=== PATIENT | female | born 1965 | race Caucasian/White ===

== ENCOUNTER → 2020-03-23 | Outpatient (CLI) | payer OTHER ==
--- NOTE | 2020-03-23 14:14 | MM ---
Reason for exam: screening (asymptomatic). Baseline mammogram. Physical Findings: Nurse did not find any significant physical abnormalities on exam. MG Screening Mammo w CAD Bilateral CC and MLO view(s) were taken. The breast tissue is heterogeneously dense. This may lower the sensitivity of mammography. Focal asymmetry right 12 o'clock middle position. These results were verbally communicated with the patient and result sheet given to the patient on 03/23/20. ASSESSMENT: Benign, BI-RAD 2 RECOMMENDATION: Routine screening mammogram of both breasts in 1 year.
== END | disposition home or self-care (01) ==
LOC: RADMAMWWP 13:08
PROVIDERS: ATTEND Family Medicine
DX: Z12.31 Encounter for screening mammogram for malignant neoplasm of breast (principal)
CPT/HCPCS: 77067

== ENCOUNTER → 2020-06-15 | Outpatient (CLI) | payer OTHER ==
[2020-06-15 10:21] LABS: Basophils % (A) 0 %; Eosinophils # (A) 0.1 k/uL (0-0.7); Eosinophils % (A) 3 %; HCT 41.8 % (34.0-46.0); HGB 13.8 gm/dL (11.4-16.0); Lymphocytes # (A) 1.2 k/uL (1.0-4.8); Lymphocytes % (A) 21 %; MCH 30.5 pg (25.0-35.0); MCV 92.5 fL (80.0-100.0); Mean Platelet Volume 6.8; Monocytes # (A) 0.4 k/uL (0-1.0); Monocytes % (A) 7 %; Neutrophils # (A) 3.7 k/uL (1.3-7.7); Neutrophils % (A) 68 %; Platelet Count 204 k/uL (150-450); RBC 4.51 m/uL (3.80-5.40); RDW 12.5 % (11.5-15.5); WBC 5.5 k/uL (3.8-10.6)
[2020-06-15 10:31] LABS: African American GFR (CKD) >90 (>60 ml/min/1.73 sqM); Anion Gap 4 mmol/L; Blood Urea Nitrogen 15 mg/dL (7-17); Calcium 9.5 mg/dL (8.4-10.2); Carbon Dioxide 30 mmol/L (22-30); Chloride 102 mmol/L (98-107); Glucose 101 mg/dL (74-99); Non-African American GFR(CKD) >90 (>60 ml/min/1.73 sqM); Potassium 3.9 mmol/L (3.5-5.1); Sodium 136 mmol/L (137-145)
== END | disposition home or self-care (01) ==
LOC: LABPAT 08:58
PROVIDERS: ATTEND Obstetrics & Gynecology
DX: Z01.818 Encounter for other preprocedural examination (principal)
CPT/HCPCS: 36415; 80048; 85025; 93005

== ENCOUNTER 2020-06-22 05:32 | Observation (INO) | payer OTHER ==
[2020-06-15 16:02] VITALS: BMI 36.8
--- NOTE | 2020-06-21 16:15 | P.HPOB ---
History of Present Illness H&P Date: 06/21/20 Chief Complaint: simple hyperplasia 55 year old presents for Total laparoscopic hysterectomy bilateral salpingo-oopherectomy with da clarisa and diagnsotic cystoscopy, possible BRIGITTE BSO. Review of Systems All systems: negative Constitutional: Denies chills, Denies fever Eyes: denies blurred vision, denies pain Ears, nose, mouth and throat: Denies headache, Denies sore throat Cardiovascular: Denies chest pain, Denies shortness of breath Respiratory: Denies cough Gastrointestinal: Denies abdominal pain, Denies diarrhea, Denies nausea, Denies vomiting Genitourinary: Denies dysuria, Denies hematuria Musculoskeletal: Denies myalgias Integumentary: Denies pruritus, Denies rash Neurological: Denies numbness, Denies weakness Psychiatric: Denies anxiety, Denies depression Endocrine: Denies fatigue, Denies weight change Past Medical History Additional Past Medical History / Comment(s): abn. uterine lining History of Any Multi-Drug Resistant Organisms: None Reported Additional Past Surgical History / Comment(s): D&C Past Anesthesia/Blood Transfusion Reactions: No Reported Reaction, Family History of Problems w/ Anesthesia Additional Past Anesthesia/Blood Transfusion Reaction / Comment(s): father had hard time coming out of anesthesia was adm to ICU Smoking Status: Never smoker - Past Family History Father Family Medical History: Cancer Additional Family Medical History / Comment(s): glioblastoma Medications and Allergies Home Medications Medication Instructions Recorded Confirmed Type No Known Home Medications 06/15/20 06/15/20 History Allergies Allergy/AdvReac Type Severity Reaction Status Date / Time ofloxacin [From Floxin] Allergy chills,diar Verified 06/15/20 15:49 byron Exam Osteopathic Statement: *. No significant issues noted on an osteopathic structural exam other than those noted in the History and Physical/Consult. HEart: RRR Lungs: CTAB Abdomen: soft, nontender Extremeties: neg rufino's Assessment and Plan (1) Simple endometrial hyperplasia Status: Acute Code(s): N85.01 - BENIGN ENDOMETRIAL HYPERPLASIA SNOMED Code(s): 301288862 Plan: 1. TLH BSO with da clarisa, diagnostic cystoscopy. possible BRIGITTE BSO
[2020-06-22] MEDS ORDERED: ONDANSETRON 4 MG/2 ML VIAL IVP ONE (06:03)
[2020-06-22] MEDS ORDERED: DEXAMETHASONE SOD PHOSPHATE 4 MG/ML 1 ML VIAL IV ONE (06:03)
[2020-06-22] MEDS ORDERED: LIDOCAINE 1% (10MG/ML) FOR IV START INTRADERMA ONE (06:25)
[2020-06-22 06:26] LABS: Glucose,Whole Blood 98 mg/dL (75-99)
[2020-06-22] MEDS: LACTATED RINGERS 1,000 ML IV SCH (06:35)
[2020-06-22] MEDS ORDERED: MORPHINE SULFATE 4 MG/ML SYRINGE IV PRN (07:00)
[2020-06-22] MEDS ORDERED: LIDOCAINE 1% INJ 10MG/ML (20 ML MDV) ONE (07:08)
[2020-06-22] MEDS ORDERED: NEOSTIGMINE 1 MG/ML 10 ML VIAL ONE (07:08)
[2020-06-22] MEDS ORDERED: ACETAMINOPHEN IV (For NPO) 1,000 MG/100 ML VIAL ONE (07:08)
[2020-06-22] MEDS ORDERED: GLYCOPYRROLATE 0.2 MG/ML 2 ML VIAL ONE (07:08)
[2020-06-22] MEDS ORDERED: ROCURONIUM 10 MG/ML (5 ML VIAL) IV ONE (07:08)
[2020-06-22] MEDS ORDERED: SUCCINYLCHOLINE CHLORIDE VIAL 200 MG/10 ML VIAL IV ONE (07:08)
[2020-06-22] MEDS ORDERED: HYDROmorphone (PF) 1 MG/ML ONE (07:08)
[2020-06-22] MEDS ORDERED: KETOROLAC 15 MG/ML 1 ML VIAL ONE (07:08)
[2020-06-22] MEDS ORDERED: MIDAZOLAM 2 MG/2 ML VIAL ONE (07:08)
[2020-06-22] MEDS ORDERED: PROPOFOL 10 MG/ML 20 ML VIAL IV ONE (07:08)
[2020-06-22] MEDS ORDERED: fentaNYL (PF) 50 MCG/ML 2 ML AMP ONE (07:08)
[2020-06-22] MEDS ORDERED: BUPIVACAINE (PF) 0.25% 30 ML VIAL SQ ONE ×2 (07:59→08:32)
[2020-06-22] MEDS ORDERED: LACTATED RINGERS 1,000 ML IV ONE (08:41)
--- NOTE | 2020-06-22 08:59 | P.OP ---
Date of Procedure: 06/22/20 Preoperative Diagnosis: 1. dysmenorrhea Postoperative Diagnosis: 1. dysmenorrhea 2. fibroid uterus Procedure(s) Performed: TL BSO with da tanisha and diagnostic cystoscopy Anesthesia: ODALIS Surgeon: Harper Desouza Manager Desktop #1: Marcelino Egan Estimated Blood Loss (ml): 100 IV fluids (ml): 400 Urine output (ml): 1,000 Pathology: other (uterus, cervix, bilateral tubes and ovaries) Condition: stable Disposition: PACU Operative Findings: Uterus is sounded to 10 cm. Normal-appearing ovaries and tubes Description of Procedure: Patient taken the operating room where general anesthesia was obtained without difficulty. She is prepped and draped in normal sterile fashion dorsal lithotomy position, legs placed in the Blake stirrups. Weighted speculum placed in the vagina and the anterior lip the cervix was grasped with single-tooth tenaculum. The uterus sounded to 10 cm and the cervix diameter was 3 cm. The appropriate manipulator tip and ring were placed on the Nancy manipulator. The Nancy manipulator was then placed in the uterus. Quevedo catheter was also placed. Attention was then turned to the abdomen and gloves were changed. A 5 mm supraumbilical incision was made the scalpel and a 5 mm optical trocar was placed under direct visualization. 10 cm to the right of this and 2 cm down a 5 mm incision was made and 8 mm da Tanisha port was placed under direct visuali zation. Same measurements on the opposite side of the patient's abdomen, the 5 mm incision was made and 8 mm da Tanisha port was placed under direct visualization. In the left upper quadrant a 10 mm incision was made and a 10 mm optical trocar was placed under direct visualization. The 5 mm optical trocar was then replaced with the 8 mm da Tanisha camera port. The robot was docked on patient's right side. The camera was introduced and then the monopolar curved scissor and [place] bipolar placed under direct visualization. I broke scrub and went to the physician console. The left infundibulopelvic ligament was cauterized with the [place] bipolar and cut with monopolar curved scissors. The left round ligament was cauterized with the [place] bipolar and cut with monopolar curved scissors. The posterior leaf of the broad ligament was taken down using the monopolar curved scissors. Anterior leaf of the broad ligament was then taken down using the monopolar curved scissors. The uterine artery was cauterized with the [place] bipolar and cut with monopolar curved scissors. The bladder flap was then started using the monopolar curved scissors. Attention was then turned to the right side of the patient's anatomy and the right infundibular pelvic ligament was cauterized with the [place] bipolar and cut with monopolar curved scissors. The right round ligament was cauterized with the [place] bipolar and cut with monopolar curved scissors. Posterior leaf of the broad ligament was taken down using the monopolar curved scissors and the anterior leaf was taken down using the monopolar curved scissors. The uterine artery was cauterized the [place] bipolar cut with monopolar curved scissors. The bladder flap was then finished on this side. Anterior colpotomy was made using the monopolar curved scissors. The rest of the uterus was from the vaginal cuff by following the ring around with the monopolar curved scissors through the uterosacral ligaments back to the anterior portion. Once the uterus and cervix were amputated they were pulled through the vaginal cuff. Hemostasis was assured. The instruments were changed for the Cardier forcep and the cinda suture cut. The vaginal cuff was then closed using 2-O stratafix barbed suture in a running fashion. Hemostasis was again assured and the pelvis was irrigated. All instruments were removed from the abdomen and the robot was undocked. I scrubbed back in to perform a cystoscopy. There were jets from both ureteral orifices. The abdominal incisions were closed with 4-0 Vicryl in a subcuticular fashion. Patient tolerated the procedure well, sponge and instrument counts correct 2 and she was taken to recovery room in stable condition condition
[2020-06-22] MEDS ORDERED: METOCLOPRAMIDE 5 MG/ML 2 ML VIAL IVP PRN (09:06)
[2020-06-22] MEDS ORDERED: Acetaminophen-Codeine 300-30mg TAB PO PRN (09:06)
[2020-06-22] MEDS ORDERED: ONDANSETRON 4 MG/2 ML VIAL IVP PRN (09:06)
[2020-06-22] MEDS ORDERED: ZOLPIDEM 5 MG TAB PO PRN (09:06)
[2020-06-22] MEDS ORDERED: IBUPROFEN 600 MG TAB PO PRN (09:06)
[2020-06-22] MEDS ORDERED: HYDROmorphone 0.5 MG/0.5 ML SYRINGE IVP ONE (09:18)
[2020-06-22] MEDS: SENNOSIDES-DOCUSATE SODIUM 1 EACH TAB PO SCH ×2 (13:55→21:16)
[2020-06-22 13:57] VITALS: RESP 16
[2020-06-22] MEDS: KETOROLAC 15 MG/ML 1 ML VIAL IVP PRN ×2 (15:33→23:32)
[2020-06-22] MEDS ORDERED: SIMETHICONE 80 MG CHEWABLE PO PRN (18:34)
[2020-06-22] MEDS: Acetaminophen-Codeine 300-30mg TAB PO PRN (20:40)
[2020-06-23] MEDS: Acetaminophen-Codeine 300-30mg TAB PO PRN (03:38)
[2020-06-23 04:15] VITALS: TEMP 97.8
[2020-06-23 08:05] VITALS: BP 129/80; PULSE 73
[2020-06-23] MEDS: LACTATED RINGERS 1,000 ML IV SCH (08:08)
--- NOTE | 2020-06-23 08:12 | P.DS ---
Providers Date of admission: 06/22/20 23:47 Expected date of discharge: 06/23/20 Attending physician: Harper Desouza Primary care physician: Cherry Earl - Discharge Diagnosis(es) (1) Simple endometrial hyperplasia Current Visit: No Status: Acute (2) Fibroid uterus Current Visit: Yes Status: Resolved (3) History of robot-assisted laparoscopic hysterectomy Current Visit: Yes Status: Acute Hospital Course: She presented for TLHBSO with da Tanisha and diagnostic cystoscopy. She underwent this procedure without complication. Her postoperative course was uncomplicated. She is voiding and ambulating without difficulty and pain is well-controlled. She'll be discharged home postoperative day #1 in stable condition to follow-up with me in 3 weeks. Plan - Discharge Summary Discharge Rx Participant: Yes New Discharge Prescriptions: New RX: Ibuprofen [Motrin] 600 mg PO Q6HR PRN #30 tab PRN Reason: Mild Pain Or Fever >= 100.5 Acetaminophen-Codeine 300-30mg [Tylenol #3] 1 - 2 tab PO Q6H PRN #20 tablet PRN Reason: Pain Discharge Medication List Acetaminophen-Codeine 300-30mg [Tylenol #3] 1 - 2 tab PO Q6H PRN #20 tablet 06/23/20 [Rx] RX: Ibuprofen [Motrin] 600 mg PO Q6HR PRN #30 tab 06/23/20 [Rx] Follow up Appointment(s)/Referral(s): Harper Desouza DO [Doctor of Osteopathic Medicine] - 3 Weeks Discharge Disposition: HOME SELF-CARE
[2020-06-23 08:29] LABS: Basophils % (A) 0 %; Eosinophils # (A) 0.2 k/uL (0-0.7); Eosinophils % (A) 2 %; HCT 44.2 % (34.0-46.0); HGB 14.6 gm/dL (11.4-16.0); Lymphocytes # (A) 1.8 k/uL (1.0-4.8); Lymphocytes % (A) 24 %; MCH 30.5 pg (25.0-35.0); MCHC 33.1 g/dL (31.0-37.0); MCV 92.2 fL (80.0-100.0); Mean Platelet Volume 6.7; Monocytes # (A) 0.5 k/uL (0-1.0); Monocytes % (A) 6 %; Neutrophils % (A) 67 %; Platelet Count 223 k/uL (150-450); RBC 4.79 m/uL (3.80-5.40); RDW 12.5 % (11.5-15.5); WBC 7.5 k/uL (3.8-10.6)
[2020-06-23] MEDS: SENNOSIDES-DOCUSATE SODIUM 1 EACH TAB PO SCH (09:14)
== END 2020-06-23 09:14 | disposition home or self-care (01) ==
LOC: OR 05:32 → 4FBP 09:13 → OR 23:47
PROVIDERS: ADMIT Obstetrics & Gynecology; ATTEND Obstetrics & Gynecology
DX: N80.0 Endometriosis of uterus (principal); D25.9 Leiomyoma of uterus, unspecified; K21.9 Gastro-esophageal reflux disease without esophagitis; N83.202 Unspecified ovarian cyst, left side; Z88.1 Allergy status to other antibiotic agents; Z80.8 Family history of malignant neoplasm of other organs or systems; Z20.822 Contact with and (suspected) exposure to COVID-19
CPT/HCPCS: 58573; S2900; 81025; 85025; 86850; 86900; 86901; 87635; 88307

== ENCOUNTER → 2022-03-08 | Outpatient (CLI) | payer OTHER ==
--- NOTE | 2022-03-08 12:00 | CA ---
Exercise Stress Test Report Name: Frieda Guardado Exam Date: 03/08/2022 10:55 Exam Location: [place] Stress Ht (in): 67 Wt (lb): 195 BSA: 2.00 Ordering Phys: Digna Celis DO Referring Phys: Afsaneh Marquez PAC Technologist: Wellington Velazquez Age: 56 Gender: F : 1965 Procedure CPT: Indications: R55 SYNCOPE AND COLLAPSE ICD-10 Codes: Patient History: NEAR SYNCOPE/DIZZINESS Medications: OMEPRAZOLE, VIT C, VIT D, IRON Meds past 24 hrs: Pretest Chest Pain: STRESS TEST Hakan Protocol Exercise Duration (min:sec): 05:[address] Depressions (mm): Angina Score: Hollingsworth Score: Resting HR (bpm): 73 Peak HR (bpm): 143 Resting BP (mmHg): 124 / 84 Peak BP (mmHg): 190 / 74 MPHR: 166 Target HR: 141 % MPHR: 86 METS: 7.0 Total Dose: Peak Dose: Atropine: Double Product: 68296 BP Response: Stress Termination: MAX EXERTION/TARGET HR Stress Symptoms: NO SYMPTOMS Stress Summary: ECG ANALYSIS Resting ECG: Stress ECG: CONCLUSIONS Patient underwent exercise stress EKG with a Hakan protocol treadmill stress test. Patient exercised into Stage 2 for a total of 5 minutes 7 seconds reaching a total of 7 METS. Patient's maximum heart rate was 143 which represented 86 % age- predicted maximum heart rate. Stress EKG findings: At baseline patient's EKG showed normal sinus rhythm, normal axis, no significant ST or T wave abnormalities. At peak exercise, EKG showed no significant change from baseline. Conclusions: 1. Normal EKG response to exercise without evidence of inducible ischemia. 2. Fair exercise capacity. Dr. Willam Montanez DO (Electronically Signed) Final Date: 08 March 2022 11:59
== END | disposition home or self-care (01) ==
LOC: RADNMMAIN 10:40
PROVIDERS: ATTEND Family Medicine
DX: I25.2 Old myocardial infarction (principal); R55 Syncope and collapse; R42 Dizziness and giddiness
CPT/HCPCS: 93017

== ENCOUNTER → 2023-02-20 | Outpatient (CLI) | payer OTHER ==
--- NOTE | 2023-02-20 15:13 | P.SLEEP ---
History of Present Illness DATE: 02/20/2023 CONSULTATION/NEW PATIENT EVALUATION HISTORY OF PRESENT ILLNESS/SLEEP-WAKE EVALUATION: 57-year-old lady had been ev aluated in the sleep center for possible obstructive sleep apnea hypopnea syndrome. SLEEP SCHEDULE: Usually sleep schedule from 9 PM to 5 AM on weekdays and from 9 PM to 6 AM on weekend. FALLING ASLEEP: Sometimes patient has difficulties with falling asleep, no TV in bedroom. DURING SLEEP: Patient sleeps on the back and side position with snoring and multiple awakenings from sleep up to 4 times with nocturia. Positive history of grinding teeth and heartburn. No history of hypnogogical hallucinations, sleep paralysis, or cataplexy. DURING THE DAY/WAKE STATE: In the morning patient wake up tired, has problems with memory. [place] sleepiness scale is increased to 10. Usually patient doesn't take naps. PAST MEDICAL HISTORY: Acid reflux, headaches. PAST SURGICAL HISTORY: Total hysterectomy in 2020 for episodes of uterus bleeding. MEDICATIONS: Omeprazole 40 mg once a day. SOCIAL HISTORY: Negative for smoking, alcohol consumption occasional. FAMILY HISTORY: Asthma, cancer, arthritis. REVIEW OF SYSTEMS: Snoring, multiple awakenings from sleep, sleepiness during the day. No fevers. No double vision. No recent chest pain. No shortness of breath. No abdominal pain. No bleeding episodes. No blood in urine. No seizure episodes. PHYSICAL EXAMINATION: GENERAL: A pleasant patient without any distress. VITAL SIGNS: BP 146/70, HR 74, RR 12, weight 238.8 pounds, height 5 foot 7 inches, body mass index 37.2, temperature 97.9, oxygen saturation from 96%. HEENT: PERRLA, EOMI. Evaluation of oropharynx showed tongue protrudes midline, low position of soft palate Mallampati 3. NECK: Supple. No JVD. Thyroid is not palpable. 15 inches in circumference. LUNGS: Clear to percussion and to auscultation. Good air exchange. No wheezing or rhonchi. HEART: S1, S2 regular. No murmurs, gallops or rubs. ABDOMEN: Soft and nontender. Bowel sounds are present. No organomegaly appreciated. EXTREMITIES: No clubbing or cyanosis. ALL ROUND LOGGER: Awake, alert, and oriented x3. Cranial nerves 2 to 7 intact. There is no fasciculation or atrophy noted. No focal deficits observed. ASSESSMENT: 1. Snoring, multiple awakenings from sleep 4 times, extremely low position of soft palate Mallampati 3, sleepiness during the day for sleepiness scale is 10. Obstructive sleep apnea-hypopnea syndrome. 2. Obesity, BMI 37.2. 3. Increased blood pressure in the office today. 4. Acid reflux. 5 history of headaches. 6 . Status post total hysterectomy in 2020 for uterus bleeding. PLAN: 1. Polysomnography for evaluation of patient's breathing during sleep. 2. Following plan after reading sleep study. 3. Preferable position during sleep on the side. 4. No driving if patient feels any sleepiness. Patient is aware of civil and criminal liability for unsafe driving. 5. Sleep hygiene with regular sleep time for at least 7.5-8 hours. 6. Watching and losing weight. Thank you very much for referring this patient for consultation. Sincerely, Devon Montaño MD, PhD, FAASM. Diplomat of [place] [employer], Sleep Medicine Board by [place] [employer] [place] [employer] Senior Advisor of [facility] [place] Past Medical History Additional Past Medical History / Comment(s): abn. uterine lining History of Any Multi-Drug Resistant Organisms: None Reported Additional Past Surgical History / Comment(s): D&C Past Anesthesia/Blood Transfusion Reactions: No Reported Reaction, Family Histor y of Problems w/ Anesthesia Additional Past Anesthesia/Blood Transfusion Reaction / Comment(s): father had hard time coming out of anesthesia was adm to ICU Past Psychological History: No Psychological Hx Reported Smoking Status: Never smoker Past Alcohol Use History: Occasional Past Drug Use History: None Reported - Past Family History Father Family Medical History: Cancer Additional Family Medical History / Comment(s): glioblastoma Medications and Allergies Home Medications Medication Instructions Recorded Confirmed Type Acetaminophen-Codeine 300-30mg 1 - 2 tab PO Q6H PRN #20 tablet 06/23/20 Rx [Tylenol #3] Ibuprofen [Motrin] 600 mg PO Q6HR PRN #30 tab 06/23/20 Rx Allergies Allergy/AdvReac Type Severity Reaction Status Date / Time ofloxacin [From Floxin] Allergy chills,diar Verified 06/15/20 15:49 byron Sleep Note - Sleep Note Sleep Note: Temperature: Pulse Rate: Respiratory Rate: Blood Pressure: SpO2: Height: Weight: BMI: Neck Circumference:
== END ==
LOC: 3 N SLEEP 14:37
PROVIDERS: ATTEND Internal Medicine
DX: G47.33 Obstructive sleep apnea (adult) (pediatric) (principal); E66.9 Obesity, unspecified; R03.0 Elevated blood-pressure reading, without diagnosis of hypertension; K21.9 Gastro-esophageal reflux disease without esophagitis; Z68.37 Body mass index [BMI] 37.0-37.9, adult; Z86.69 Personal history of other diseases of the nervous system and sense organs; Z90.710 Acquired absence of both cervix and uterus; Z88.1 Allergy status to other antibiotic agents
CPT/HCPCS: 99211